=== PATIENT | female | born 1960 | race Caucasian/White ===

== ENCOUNTER 2024-04-27 09:54 | Outpatient (AMB) | payer MEDICAID, SELFPAY ==
--- NOTE | 2024-04-27 10:01 | MHC.OFFVIS ---
Vital Signs 04/27/24 10:05 Height 5 ft 4 in Weight 222 lb 8 oz BMI 38.2 BP 144/90 H Blood Pressure Location Rt brachial Position Sitting Pulse 68 Pulse Source Pulse Oximeter Pulse Oximetry (%) 99 Intake Visit Reasons: ENP-Sleep disorder-CONF Intake Note: Patient presents for for sleep disorder. Patient having issues with sleep sometimes she sleeps good. Java Software Engineer Required: Yes Java Software Engineer Name: [id number] Allergies No Known Allergies Allergy (Verified 04/27/24 10:09) Medication List - Last Reconciled 04/27/24 by PIPE Leiva acetaminophen 500 mg PO Q6H PRN cholecalciferol (vitamin D3) 50 mcg PO DAILY levothyroxine 88 mcg PO DAILY magnesium oxide 400 mg PO BEDTIME 30 days omeprazole 20 mg PO DAILY PRN HPI Comments Details: 63-yr-old female presents for new in-person patient visit for sleep consultation. Pt is accompanied by her dtr. Patient reports she has difficulty staying asleep and falling back asleep. She has always had sleep difficulties. Sleep questionnaire: Have you ever been diagnosed with a sleep disorder? No Have you ever had a sleep study in the past? No Have you ever been treated for a sleep disorder? No Do you take medications for a sleep disorder? No Do you snore? Yes Do you wake up gasping at night? Yes Do you have episodes of apneas? Denies If yes, are they witnessed? N/a Do you have episodes of nocturnal chest pain or dyspnea? May feel like she is being choked Do you have difficulty initiating sleep? No Do you have difficulty maintaining sleep? Yes. Do you wake up tired? Yes Do you have headaches upon awakening? Sometimes. Do you have bruxism? Yes, jaw tightness and soreness. Do you wake up with dry mouth or throat? Yes Do you have GERD? Yes Do you have nocturia? Some nights- up to 4 x's a night. Do you have nocturnal leg cramps? At times Do you have symptoms of restless legs? Yes: when she has leg cramps, has to move. Do you act out your dreams? No Do you have sleep paralysis? No Do you have drop attacks? No Do you ever have hypnogenic hallucinations? No Hypersomnolence questionnaire: Do you have daytime tiredness or fatigue? Yes Do you easily fall asleep when inactive? Yes Have you ever had episodes of sudden weakness? No Have you ever had episodes of sudden weakness associated with strong emotions? No Sleep hygiene questionnaire: What is your usual sleep routine? Usual bedtime is at 10-10:30pm; Usual wake-up time is at 4-6am- but wants to sleep longer. Do you take naps? Yes- sometimes in the afternoon if tired. Is your sleep environment cool, dark, and quiet? Yes Do you exercise? Sometimes Do you take caffeine or other stimulants? Tea in am, coffee sometimes in early afternoon. Do you use electronics in bed? Yes: TV What is your work schedule? Retired- previously worked day shift. FOR[facility]LY [facility] Surgical History (Updated 04/27/24 @ 10:13 by MYRNA Jacobs) H/O toe surgery H/O varicose vein stripping H/O: hysterectomy Social History (Updated 04/27/24 @ 10:13 by MYRNA Jacobs) Alcohol intake: never Patient Tobacco Use Status: Never used Tobacco Physical Exam Vital Signs: Last Vital Signs Pulse 68 04/27/24 10:05 BP 144/90 H 04/27/24 10:05 Pulse Ox 99 04/27/24 10:05 BMI result Body Mass Index 38.2 Const General: no acute distress Orientation/consciousness: patient oriented x3 HEENT Other: Mallampati stage 4 Bilateral TMJ crepitus. Resp Effort & Inspection: normal respiratory effort and able to speak in complete sentences Cardio Rate: regular rate Rhythm: regular rhythm Neuro Other: Bilateral neck tightness. General: patient oriented x3 Psych Mental Status: mental status grossly normal Speech and movement: Clear speech present Attitude: cooperative Assessment & Plan Assessment & Plan (1) Sleep difficulties: Code(s): G47.9 - Sleep disorder, unspecified Category: Medical (2) Snoring: Code(s): R06.83 - Snoring Category: Medical (3) Excessive daytime sleepiness: Code(s): G47.19 - Other hypersomnia Category: Medical (4) TMJ dysfunction: Code(s): M26.609 - Unspecified temporomandibular joint disorder, unspecified side Category: Medical Plan Pt advised to undergo HST to assess for sleep apnea. PT eval & tx for bilateral TMJ pain, crepitus, bruxism. Trial Magnesium 400mg qhs. follow-up upon review of above and in clinic in 6 months or sooner. Pt seen in c/w Dr Damari Rivas. Orders: Orders RT home sleep study Today G47.19 - Other hypersomnia, G47.9 - Sleep disorder, unspecified, M26.609 - Unspecified temporomandibular joint disorder, unspecified side, R06.83 - Snoring PT Evaluation and Treatment Today M26.609 - Unspecified temporomandibular joint disorder, unspecified side Medications: New magnesium oxide may hold for loose stools 400 mg PO BEDTIME 30 days 30 tabs 6RF Coding Level of Care Code New Pt Level 4 (77165) Diagnoses Sleep difficulties G47.9 Snoring R06.83 Excessive daytime sleepiness G47.19 TMJ dysfunction M26.609 [place] Sleepiness Scale Questions Sitting and reading: moderate chance of dozing Watching TV: moderate chance of dozing Sitting inactive in a theater, movie etc.: slight chance of dozing As a passenger in a car for an hour without break: slight chance of dozing Lying down in the afternoon when circumstances permit: moderate chance of dozing Sitting and talking to someone: would never doze Sitting quietly after lunch without alcohol: moderate chance of dozing In a car, while stopped for a few minutes in the traffic: would never doze ESS < 10: normal, ESS > 12: pathologic: 10
[2024-04-27 10:05] VITALS: BP 144/90; PULSE 68; O2SAT 99; BMI 38.2
== END 2024-04-27 11:14 | disposition home or self-care (01) ==
PROVIDERS: PCP Physician Assistant; Visit Provider Nurse Practitioner Family
DX: G47.9 Sleep disorder, unspecified (principal); R06.83 Snoring; G47.19 Other hypersomnia; M26.609 Unspecified temporomandibular joint disorder, unspecified side
CPT/HCPCS: 99204

== ENCOUNTER → 2024-04-27 09:54 | Outpatient (BNVA) | payer MEDICAID, SELFPAY | PROVIDERS: PCP Physician Assistant; Visit Provider Nurse Practitioner Family | DX: G47.9 Sleep disorder, unspecified (principal); R06.83 Snoring; G47.19 Other hypersomnia; M26.609 Unspecified temporomandibular joint disorder, unspecified side | CPT/HCPCS: 99212 ==

== ENCOUNTER → 2024-06-29 10:56 | Outpatient (REF) | payer MEDICAID, SELFPAY | LOC: HO.SL 10:56 | PROVIDERS: PCP Physician Assistant; Visit Provider Nurse Practitioner Family | DX: G47.33 Obstructive sleep apnea (adult) (pediatric) (principal); R06.83 Snoring; G47.19 Other hypersomnia | CPT/HCPCS: 95806 ==

== ENCOUNTER → 2024-06-29 11:14 | Outpatient (BNV) | payer MEDICAID, SELFPAY | PROVIDERS: PCP Physician Assistant; Visit Provider Psychiatry & Neurology Neurology | DX: G47.33 Obstructive sleep apnea (adult) (pediatric) (principal) | CPT/HCPCS: 95806 ==

== ENCOUNTER 2024-11-12 13:02 | Outpatient (AMB) | payer MEDICAID, SELFPAY ==
--- OUTSIDE RECORDS SUMMARY | 2024-11-12 13:05 | XMS_ITS | Data Portability ---
Author Organization [place] - [facility], [facility] Address [address] [place] [address] Assessment Encounter Date Assessment Date Assessment LastModified by Organization Details LastModified Time 04/16/2024 04/16/2024 I am seeing the patient today under the supervision of Dr. Vanegas Who was available but who did not see the patient. HPI: Patient comes in for recheck of left knee pain. Has known osteoarthritis in the medial compartment of the knee(s). Been treated conservatively with cortisone injection to this point with 3 months relief of symptoms. At her last appointment we had implemented a right knee injection. Did not have any difficulty with her last injection we had decided to space out cortisone injections due to some hypertension noted with systemic absorption of cortisone at the appointment prior to last. Did not have any difficulty with her last injection 2 weeks ago. No hypertensive episodes. No new injury or modalities. Past family, medical, social history and review of systems has been reviewed, updated and is located in the patient's chart. Examination:The patient is well appearing and in no apparent distress. Alert and oriented x3. Vital signs per intake sheet. Examination of the left knee reveals no effusion erythema or warmth. Decreased range of motion. Slight varus deformity. Point tender over the medial joint line. Calf soft and nontender. 4+/5 strength of knee flexion extension. Impression: Osteoarthritis, left knee Plan: Nature of the diagnosis discussed with the patient today. Both surgical and nonsurgical options were reviewed. This point recommend a repeat cortisone injection. Patient agreed.After aseptic technique and consent the left knee(s) was injected with 1 cc of Kenalog-40 and 5 cc of 0.25% Marcaine. Patient tolerated the procedure well postinjection precautions were reviewed. Follow-up with us in 3 months for discussion of continued conservative management versus surgical management. [email or web address] Not available 04/16/2024 08:35:22 07/02/2024 07/02/2024 I am seeing the patient today under the supervision of Dr. Haque Who was available but who did not see the patient. HPI: Patient comes in for recheck of right knee pain. Has known osteoarthritis in the medial compartment of the knee(s). Been treated conservatively with cortisone injection to this point with 3 months relief of symptoms. No new injury or modalities. Past family, medical, social history and review of systems has been reviewed, updated and is located in the patient? s chart. Examination:The patient is well appearing and in no apparent distress. Alert and oriented x3. Vital signs per intake sheet. Examination of the right knee reveals no effusion erythema or warmth. Decreased range of motion. Varus deformity. Point tender over the medial joint line. Calf soft and nontender. 4+/5 strength of knee flexion extension. Impression: Osteoarthritis, right knee Plan: Nature of the diagnosis discussed with the patient today. Both surgical and nonsurgical options were reviewed. Conservative measures were discussed at length including but not limited to physical therapy, bracing, anti-inflammatorie s and injection therapies. Please see the procedure note for documentation about the injection performed today. Will follow up as scheduled for further evaluation. The patient understands and agrees with the plan. They know to call if they have any further questions or concerns regarding their symptoms, or to follow up sooner if needed. [email or web address] Not available 07/02/2024 07:49:02 07/16/2024 07/16/2024 I am seeing the patient today under the supervision of Dr. Haque Who was available but who did not see the patient. HPI: Patient comes in for recheck of left knee pain. Has known osteoarthritis in the medial compartment of the knee(s). Been treated conservatively with cortisone injection to this point with continued relief of symptoms. Her right knee did not benefit very much from last cortisone injection. No new injury or modalities. Past family, medical, social history and review of systems has been reviewed, updated and is located in the patient? s chart. Examination:The patient is well appearing and in no apparent distress. Alert and oriented x3. Vital signs per intake sheet. Examination of the bilateral knee reveals no effusion erythema or warmth. Decreased range of motion. Varus deformity. Point tender over the medial joint line. Calf soft and nontender. 4+/5 strength of knee flexion extension. Impression: Osteoarthritis, bilateral knee Plan: Nature of the diagnosis discussed with the patient today. Both surgical and nonsurgical options were reviewed. Conservative measures were discussed at length including but not limited to physical therapy, bracing, anti-inflammatorie s and injection therapies. Patient would like to follow up after another 3 months. Patient has received decreasing benefit from conservative management with cortisone for the right knee, therefore would like to order Visco supplementation. Will obtain insurance approval and see the patient back once this has been obtained. Will follow up as scheduled for further evaluation. The patient understands and agrees with the plan. They know to call if they have any further questions or concerns regarding their symptoms, or to follow up sooner if needed. [email or web address] Not available 07/16/2024 12:28:25 10/08/2024 10/08/2024 I am seeing the patient today under the supervision of who was available but who did not see the patient. Please see procedure documentation for further information about the injection performed today. [email or web address] Not available 10/06/2024 08:09:03 11/05/2024 11/05/2024 I am seeing the patient today under the supervision of Dr. Cantrell who was available but who did not see the patient. HPI: Patient is a 64 year old female presenting today for evaluation of bilateral knee pain. Initially was presenting for her left knee viscosupplementati on. However the left knee is not bothering her very much. The right knee has continued to be very painful. She has not received much benefit at all from the cortisone or gel provided approximately 1 month ago. She is having difficulty sleeping, ambulating for any prolonged period of time and with her activities of daily living. Past family, medical, social history and review of systems has been reviewed, updated and is located in the patient? s chart. Examination: The patient is well appearing and in no apparent distress. Alert and oriented x3. Gait is Antalgic favoring the right side. bilateral knee reveals no evidence of any edema, erythema, or warmth. Varus Deformity. Range of motion of the knee slightly limited with mild discomfort at the end ranges. Mild effusion. Does have some tenderness to palpation about the medial hemijoint line. Patellofemoral crepitus is noted. No ligamentous laxity. Negative Orin? s. Calf is supple and nontender. Neurovascularly intact distally. X-rays ordered, obtained and reviewed at [facility]. 4 views of the bilateral knee today showed narrowing of the medial compartment of the knee. With slight osteophyte formation. Narrowing is noted of patellofemoral joint as well. No evidence of any other bony lesions or pathology. Impression: Osteoarthritis, bilateral knee Plan:I explained the nature of the diagnosis with the patient and its treatment options both conservative and surgical. The patient was thoroughly counseled today regarding their knee condition, its natural history and the options, both operative and non-operative. The nature of knee replacement surgery, the potential risks, benefits, and complications, the magnitude of the surgery, the intensity of postoperative recovery as well as its elective nature were explained at length today. Issues regarding life long infection and activity precautions were reviewed. The longevity of the implants was discussed. Patient would like to meet with Dr. Stiles. Follow up arranged. The patient understands and agrees with the plan. They know to call if they have any further questions or concerns regarding their symptoms, or to follow up sooner if needed. [email or web address] Not available 11/05/2024 10:00:12 Plan of Treatment Reminders Order Date Submit Date Provider Last Modified By Organization Details Last Modified Time Details Appointments NEW PATIENT 15 2024 11:30A M Rudy Mayes MD Not available Not available Not available RECHECK 15 2024 11:00A M Navjot Prince PA-C Not available Not available Not available RECHECK 15 2024 01:30P Nia Prince PA-C Not available Not available Not available Lab None recorded. Referral None recorded. Procedures None recorded. Surgeries None recorded. Imaging XR, knee, 4 or more view - recheck right knee pain room 113 2023 024 [email or web address] [facility], [address], [place], [address], 11/06/2024 07:52:05 Medication Orders diclofena c 1 % topical gel 2023 024 [facility] #[id number], [address] [place], [address], 11/05/2024 10:20:46 Patient TargetsNo targets recorded. Patient Instructions Encounter Date Encounter Id Patient Instructions Last Modified By Organization Details Last Modified Time 10/08/2024 You have been provided with a viscosupplementation injection in order to reduce the pain that you are experiencing from your arthritis. The injection consists of a lubricating injection called hyaluronic acid. Please note that not everyone will have a lasting response following the injection. PATIENT INSTRUCTIONS I recommend icing the affected area for 20 minutes 3-4 times per day. It is recommended that you refrain from any high level activities using the joint or limb that was injected for approximately 24-48 hours. Normal day-to-day activities are generally not a problem. POSSIBLE SIDE EFFECTS Individuals with dark complexions may experience some skin discoloration locally at the site of the injection. There is the possibility of an increase in discomfort within 48 hours following the injection. This is called a ? flare? . To help minimize the chances of this, please see the post-injection instructions above. There is a less than 1% chance of an infection. If you notice any signs of infection (redness, warmth, drainage, fever greater than 100 degrees) please call our office or contact us through the portal [facility]. [email or web address] Not available 10/06/2024 08:09:07 Reason for Referral None Reported. Results Created Date Observation Date Name Description Value Unit Range Abnormal Flag Note LastModifiedBy Organization Detail LastModifiedTime 11/05/2011/05/2024 XR, knee, 4 or more view [email or web address] ?Encry pted=s hAaTro YD8dLq bEUv6g %2BXZw aYqtaq 0bqfl% 2Fg9IQ a4ajBk vP9nXo QUaueC m3YtLR FvZlgJ JJ8mAn HZtai3 1p2157 AC0Kqb nyGU6u uKiQtr MwF INTERFACE [facility] [address] [address] [facility] [address], [place], [address], 11/05/2024 10:10:57 11/05/20 24 11/05/2024 XR, knee, 4 or more view [email or web address] ?Encry pted=s Elsi YD8dLq bEUv6g %2BXZw aYqtaq 0bqfl% 2Fg9IQ a4ajBk vP9nXo QUaueC m3YtLR FvZlgJ JJ8mAn HZtai3 7e3271 AC0Kqb nyGU6u uKiQtr MwF INTERFACE [facility] [address], [place], [address], 11/05/2024 10:10:59 Result Notes None recorded. Problems Name Problem SNOMED Code Status Onset Date Resolution Date Notes Provider Name and Address Organization Details Recorded Time No complaints 816602028 Active Status : 'A'; Not Available [facility] 4 09:20:28 Pain of right knee joint [id number] 00 Active 2023 NIA partida, [facility] 4 09:50:46 Problem Notes None recorded. Procedures Surgical History Date Name Laterality Status Provider Name and Address Organization Details Recorded Time 4 Sports Knee 4&1 completed Navjot Prince PA-C [address] [facility], [place], [address], [facility] 10/06/2024 08:08:41 4 Gel-One Knee Injection completed Navjot Prince PA-C [address] [facility], [place], [address], [facility] 10/06/2024 08:08:36 4 Sports Knee 4&1 completed Navjot Prince PA-C [address] [facility], [place], [address], [facility] 07/02/2024 07:48:19 4 Sports Knee 4&1 completed Navjot Prince PA-C [address] [facility], [place], [address], [facility] 04/16/2024 07:20:11 Sports Knee 4&1 completed Navjot Prince PA-C [address], [place], [address], [facility] 04/01/2024 14:32:24 Imaging Results Imaging Date Name Status LastModified by Organiz ation Details LastModified Time 11/05/2024 XR, knee, 4 or more view completed INTERFACE [facility] [address], [place], [address], 11/05/2024 10:10:57 11/05/2024 XR, knee, 4 or more view completed INTERFACE [facility] [address], [place], [address], 11/05/2024 10:10:59 Procedure Notes None recorded. Medical Equipment None Reported. Allergies No known drug allergies Medications Name Sig Start Date Stop Date Status Note LastModified by Organization Details LastModified Time acetaminoph en 500 mg tablet TAKE 1 TABLET BY MOUTH EVERY 6 HOURS NEEDED FOR PAIN active Not Available Not Available No t Available amoxicillin 500 mg tablet TAKE ONE TABLET BY MOUTH THREE TIMES A DAY FOR SEVEN DAYS 07/02 completed Not Available Not Available Not Available levothyroxi ne 88 mcg tablet TAKE 1 TABLET BY MOUTH EVERY DAY active Not Available Not Available No t Available magnesium oxide 400 mg (241.3 mg magnesium) tablet TAKE 1 TABLET BY MOUTH AT BEDTIME. MAY HOLD FOR LOOSE STOOLS. active Not Available Not Available No t Available omeprazole 20 mg capsule,del ayed release TAKE 1 CAPSULE BY MOUTH ONCE DAILY NEEDED (DYSPEPSI A) active Not Available Not Available No t Available chlorhexidi ne gluconate 0.12 % mouthwash RINSE AND SPIT WITH 15 ML BY MOUTH THREE TIMES DAILY AFTER MEALS FOR TWO WEEKS 07/02 completed Not Available Not Available Not Available diclofenac 1 % topical gel APPLY 2 GRAMS TO THE AFFECTED AREA(S) BY TOPICAL ROUTE 3-4 TIMES PER DAY 2023 active Not Available Not Available Not Avai lable cholecalcif emil (vitamin D3) 50 mcg (2,000 unit) capsule TAKE 1 CAPSULE BY MOUTH EVERY DAY active Not Available Not Available No t Available oxycodone HCl-oxycodo ne-ASA 1Q 4-[address] WHILE ON THIS MEDICATIO N 04/30 completed Statu s: 'Disc ontin ued'; Not Available Not Available Not Available Vitals Date Recorded Body height Provider Name an d Address Organization Details Last Updated DateTime 04/16/2024 160.02 cm KAYLIA L'HEUREUX [facility] 04/16/2024 08:21:14 Date Recorded Body height Body mass index (BMI) Body weight Provider Name and Address Organization Details Last Updated DateTime 07/02/2024 160.02 cm 36.8 kg/m2 64582.21 g KAYLIA L'HEUREUX [facility] 07/02/2024 10:30:53 Date Recorded Body height Body mass index (BMI) Body weight Provider Name and Address Organization Details Last Updated DateTime 07/16/2024 160.02 cm 36.8 kg/m2 11468.21 g KAYLIA L'HEUREUX [facility] 07/16/2024 09:26:35 Date Recorded Body height Body mass index (BMI) Body weight Provider Name and Address Organization Details Last Updated DateTime 10/08/2024 160.02 cm 36.8 kg/m2 92417.21 g KAYLIA L'HEUREUX [facility] 10/08/2024 10:18:08 Date Recorded Body height Body mass index (BMI) Body weight Provider Name and Address Organization Details Last Updated DateTime 11/05/2024 160.02 cm 36.8 kg/m2 61930.21 g KAYLIA L'HEUREUX [facility] 11/05/2024 09:36:50 Social History Question Answer Notes LastModified by Organizat ion Details LastModified Time Tobacco Smoking Status Never Smoker [facility]IA [facility] 07/02/2024 10:31:41 What Is Your Level Of Alcohol Consumption? None Information not available 07/02/2024 What Is Your Relationship Status? Information not available 07/02/2024 Do You Use Any Illicit Or Recreational Drugs? No Information not available 07/02/2024 Do You Or Have You Ever Used Any Other Forms Of Tobacco Or Nicotine? No Information not available 07/02/2024 Sex: Unknown Functional Status None recorded. Mental Status None recorded. Family History Nothing Reported. Medical History Condition Response Allergies/Hayfever N Coronary Artery Disease N Breathing or lung disorders N Anxiety/Depression N Emphysema N Nerve Disorders N Thyroid Problems Y COPD N Pacemaker N Kidney/Bladder Problems N Anemia N Vascular Disease N Heart Trouble N Heart Attack (NH) N Gastrointestinal Disease N Cholesterol N Diabetes N Autoimmune disease N Bleeding Disorder N Orthotics N Seizures/Epilepsy N Arthritis N Blood Clot N AIDS/HIV N Congestive Heart Failure (CHF) N Acid Reflux (GERD) N Cancer N Stroke N Asthma N Circulation Problems N Peripheral Vascular Disease N Sleep Apnea N Hepatitis N Heart Disease N Rheumatoid Arthritis N Pulmonary Embolism N Arrhythmia N Headaches N Fibromyalgia N Hypertension N Osteoporosis N Gynecological HistoryNo gynecological history recorded. Obstetrics History GPAL:G 0 P 0 0 0 0 Past Encounters Encounter ID Performer Location Encounter Start Date Encounter Closed Date Diagnosis/Indication Diagnosis SNOMED-CT Code Diagnosis ICD10 Code [id number] ANDREINA Gonzalez [address] [place] [address] 04/02/2024 10:46:11 04/26/2024 16:57:03 Bilateral osteoarthritis of knees 2640685938 05372 M17.0 [id number] ANDREINA Gonzalez [address] [place] [address] 04/16/2024 08:10:35 05/06/2024 09:07:32 Osteoarthritis of left knee joint 1076328472 76491 M17.12 [id number] ANDREINA Gonzalez [address] [place] [address] 07/02/2024 10:17:19 07/29/2024 10:22:19 Osteoarthritis of right knee joint 6406594658 24666 M17.11 [id number] ANDREINA Gonzalez [address] [place] [address] 07/16/2024 09:11:03 08/08/2024 12:20:04 Osteoarthritis of left knee joint 5570272221 98253 M17.12 [id number] Navjot Prince PA-C [facility] [address] [place] [address] 10/08/2024 10:12:41 10/08/2024 13:31:46 Osteoarthritis of right knee joint 6649270331 91265 M17.11 [id number] ANDREINA Gonzalez [address] [place] [address] 11/05/2024 09:24:00 11/05/2024 10:20:50 Pain of right knee joint 3479283095 34245 M25.561 Primary go narthrosis, bilateral 000056714 M17.0 Health Concerns Section Related Observation LastModified by Organization Detai ls LastModified Time None Recorded Concern Status LastModified by Organization Details LastModified Time None Recorded Advance Directives Directive None Recorded Payers Encounter Date Sequence Insurance Name Policy Number Policy Ray Covered Member ID Ray Member ID Guarantor Name 04/16/2024 1 [place] Rosanna Doddko [id number] Rosanna Rashida 07/02/2024 1 [place] Ros[place] Rashida [id number] Rosanna Rashida 07/16/2024 1 [place] Rosanna Rashida [id number] Rosanna Rashida 10/08/2024 1 [place] Rosanna Rashida [id number] Rosanna Field 11/05/2024 1 [place] Rosanna Doddko [id number] Rosanna Rashida OBGyn Episode No OBEpisode recorded.
[2024-11-12 13:09] VITALS: BMI 39.3
--- NOTE | 2024-11-12 13:09 | A.OFFVIS_ITS ---
Vital Signs 11/12/24 13:09 Height 5 ft 4 in Weight 229 lb BMI 39.3 Intake Visit Reasons: 6 month F/U Intake Note: Patient presents for 6 month follow up Allergies No Known Allergies Allergy (Verified 11/12/24 13:13) HPI Comments Details: 64 yr-old female presents for sleep evaluation. -Pt is accompanied by her dtr. who interprets history Patient reports she has difficulty staying asleep and falling back asleep. Sleep is not currently great b/c of congestion, and cold symptoms. She uses her CPAP more than 4 hours a night. Goes to bed at 11pm gets up at 1:30am goes to the bathroom and gets up at 7 or 8am. She has pain in her knees bilaterally R>L. Gets quarterly Cortisone shots, has bone on bone pain with grinding. Nov 2024 consultation for knee surgery Her memory, mood and diet are good. She cleans the nose pillow, but would like a full face mask as this one is not good fit for her, it leaks and doesn't adjust well, then she removes it in the middle of the night. CPAP- Report not available. [facility] Surgical History H/O toe surgery H/O varicose vein stripping H/O: hysterectomy Social History Alcohol intake: never Patient Tobacco Use Status: Never used Tobacco Review of Systems Const All systems reviewed & are unremarkable except as noted in HPI and below ENT Reports Normal hearing present Neuro Reports Normal hearing present Physical Exam Vital Signs: BMI result Body Mass Index 39.3 Const General: cooperative, comfortable and no acute distress Nutritional Appearance: average body habitus and obese (BMI 39) Orientation/consciousness: patient oriented x3 Eyes Pupils: Equal, round and reactive pupils present Neck Neck: Yes full ROM and Yes supple Resp Effort & Inspection: normal respiratory effort and able to speak in complete sentences Neuro General: patient oriented x3 and moves all extremities Cranial nerves: Yes CN's II-XII intact bilaterally, Yes Facial sensation intact/muscles of mastication intact, Yes Equal, round and reactive pupils present, Yes Normal accommodation reflex present, Yes Bilaterally intact EOM present, Yes Nystagmus not present, Yes Normal facial strength present, Yes Midline tongue present, Yes Normal hearing present, Yes Ability to bilaterally rotate head present and Yes Ability to bilaterally elevate shoulders present Motor exam (neuro): 5/5 motor strength present throughout and Normal motor muscle tone present throughout Deep tendon reflexes (DTR's): Right triceps reflex intensity grade: 2+, Left tri ceps reflex intensity grade: 2+, Rt Biceps (C5, C6): 2+, Left biceps reflex intensity grade: 2+, Right brachioradialis reflex intensity grade: 2+, Left brachioradialis reflex intensity grade: 2+, Right patellar reflex intensity grade: 2+ and Left patellar reflex intensity grade: 2+ Coordination: [id number] test normal Psych Appearance: grossly normal Speech and movement: Normal speech and movement present Affect: normal affect Attitude: cooperative Insight: Good insight present (Psych) Judgement: Good judgement present (Psych) Results Reviewed Results Reviewed: CPAP Report not available patient is being referred to Titration study and mask fitting. Assessment & Plan Assessment & Plan (1) Knee pain, chronic: Code(s): M25.569 - Pain in unspecified knee; G89.29 - Other chronic pain Category: Medical Qualifiers: Laterality: bilateral Qualified Code(s): M25.561 - Pain in right knee; M25.562 - Pain in left knee; G89.29 - Other chronic pain (2) Sleep difficulties: Code(s): G47.9 - Sleep disorder, unspecified Category: Medical (3) Obesity (BMI 30-39.9): Code(s): E66.9 - Obesity, unspecified Category: Medical Plan Sleep difficulties: -Patient continues to have knee pain and shooting pain up the leg and down the basurto. -Will send her to PT for knee pain. Continue use of CPAP daily and especially if napping during the daytime. Follow up in 4 months as needed, after surgical consultation for knee. Will discuss NCS at next f/u as she continues to have leg pain during night which keeps her up, Radiculopathy? Neuropathy? Sciatica? - Supplementation of Magnesium 200-400 mg daily, B12/ Vitamin D/ B6/ Omegas/ Turmeric / Curcumin for inflammation as needed. Orders: Orders PT Evaluation and Treatment Today G89.29 - Other chronic pain, M25.569 - Pain in unspecified knee Coding Level of Care Code Est Pt Level 3 (77444) Diagnoses Chronic pain of both knees M25.561; M25.562; G89.29 Laterality: bilateral Sleep difficulties G47.9 Obesity (BMI 30-39.9) E66.9 Time Spent (min) 30 Comment Improving
== END 2024-11-12 13:59 | disposition home or self-care (01) ==
PROVIDERS: Absent Provider Physician Assistant Medical; PCP Physician Assistant; Visit Provider Nurse Practitioner Family
DX: M25.561 Pain in right knee (principal); M25.562 Pain in left knee; G89.29 Other chronic pain; G47.9 Sleep disorder, unspecified; E66.9 Obesity, unspecified
CPT/HCPCS: 99213

== ENCOUNTER → 2024-11-12 13:02 | Outpatient (BNVA) | payer MEDICAID, SELFPAY | PROVIDERS: Absent Provider Physician Assistant Medical; PCP Physician Assistant; Visit Provider Nurse Practitioner Family | DX: G47.9 Sleep disorder, unspecified (principal); M25.562 Pain in left knee; M25.561 Pain in right knee; G89.29 Other chronic pain; E66.9 Obesity, unspecified; Z68.39 Body mass index [BMI] 39.0-39.9, adult | CPT/HCPCS: 99212 ==

== ENCOUNTER 2025-04-15 11:29 | Outpatient (AMB) | payer MEDICAID, SELFPAY ==
--- NOTE | 2025-04-15 11:31 | MHC.OFFVIS ---
Vital Signs 04/15/25 11:32 Height 5 ft 4 in Weight 225 lb 2 oz BMI 38.6 Pulse 66 Pulse Source Pulse Oximeter Pulse Oximetry (%) 97 Oxygen Delivery Method Room Air Intake Visit Reasons: 5mon follow up Intake Note: Patient presents follow up sleep. Compliance in chart(70/90 days, >=4hrs-16 days, Median Pressure-5.6, Median Leaks-0.0, AHI-0.4) Sample Shoe Inspector And Reworker Required: Yes Sample Shoe Inspector And Reworker Services: Sample Shoe Inspector And Reworker Offered & Declined Sample Shoe Inspector And Reworker Name: Daughter Information Interpreted: non-clinical & clinical Accompanied by: Daughter Allergies No Known Allergies Allergy (Verified 04/15/25 11:35) HPI Comments Details: 64 yr-old female presents for PAUL evaluation. Pt is accompanied by her daughter Huma who interprets history. HST c/w mild PAUL AHI was 9.2 and oxygen usman to 84% and nocturnal hypoxemia, started cpap [id number]. Patient reports she has difficulty staying asleep and falling back asleep due to congestion and feels as though her r. nostril is blocked and is unable to get air in. She was having difficulty with getting supplies and her mask was too large for her face, in February she finally received nose pillows and now she is using her cpap more consistently. She notices in the afternoons she is napping more. We discussed weight reduction options today, walking though she has knee pain, and bone on bone grinding R> L knee pain. She has been going to [address] [place] [address] at [facility], for corticosone shots, and contemplating knee surgery. We discussed wearing a knee brace, using tiger balm, icy hot, or Gregory-wetzel, and massage therapy, along with losing weight and swimming. When taking walks to limit them to 15min and use hiking sticks in both hands to prevent falls. She denies RLS. Her memory, mood and diet are good, she has cut out sugar. We also discussed drinking more water daily. She cleans the nose pillows, washes them daily, rinses out her hoses, changes the filters in the machine, fills the reservoir with water nightly. Requested labs from [facility], and her pcp Vanda Dhillon. [facility] Surgical History H/O toe surgery H/O varicose vein stripping H/O: hysterectomy Social History Alcohol intake: never Patient Tobacco Use Status: Never used Tobacco Physical Exam Vital Signs: Last Vital Signs Pulse 66 04/15/25 11:32 Pulse Ox 97 04/15/25 11:32 Oxygen Delivery Method Room Air 04/15/25 11:32 BMI result Body Mass Index 38.6 Const General: cooperative, comfortable and no acute distress Orientation/consciousness: patient oriented x3 HEENT Face and sinus: Yes face symmetric Eyes Pupils: Equal, round and reactive pupils present Resp Effort & Inspection: normal respiratory effort and able to speak in complete sentences Neuro General: patient oriented x3 and moves all extremities Cranial nerves: Yes Facial sensation intact/muscles of mastication intact, Yes Equal, round and reactive pupils present, Yes Normal accommodation reflex present, Yes Bilaterally intact EOM present, Yes Normal facial strength present, Yes Midline tongue present, Yes Ability to bilaterally rotate head present and Yes Ability to bilaterally elevate shoulders present Gait exam (Neuro): Antalgic gait present Motor exam (neuro): 5/5 motor strength present throughout and Normal motor muscle tone present throughout Psych Thought process: Normal thought process present Thought content: Normal thought content present Results Reviewed Results Reviewed: PAUL compliance report 01/05/2025- 04/04/2025 >4 horus 16 days and 18% Avg use is total 2hours and 10min Press [id number] therapy at 5.6-7.2cmH20 Leaks 0-4.7/hr AHI is 0.4/hr Assessment & Plan Assessment & Plan (1) PAUL (obstructive sleep apnea): Comment: she continues to have r. nare congestion at night leading to hypoxemia, swithed masks. Code(s): G47.33 - Obstructive sleep apnea (adult) (pediatric) Category: Medical (2) Right nasal polyps: Code(s): J33.9 - Nasal polyp, unspecified Category: Medical (3) Nocturnal hypoxemia: Comment: will send for overnight oximetry Code(s): G47.34 - Idiopathic sleep related nonobstructive alveolar hypoventilation Category: Medical (4) Obesity (BMI 30-39.9): Code(s): E66.9 - Obesity, unspecified Category: Medical (5) Excessive daytime sleepiness: Code(s): G47.19 - Other hypersomnia Category: Medical Plan PAUL continue cpap use daily and for more than 4 hours a night, and when napping during the day. Positional therapy and weight loss is recommended. Hypoxemia Oximetry overnight Mask fitting sent order to [facility], may purchase additional supplies on cpap store online. ENT referral for r. sided nare congestion? polyps? suggested using vicks vapor rub stick at night. Obestiy swimming or biking is easier on the joints, start with diet and lifestyle changes. For chronic knee pain continue to use a knee brace and hiking sticks to support weight or swim consistently. Fatigue will submit labs to r/o deficiencies. Continue using mag 400mg daily, requested labs from [facility]. F/U in 3 months for compliance Orders: Orders Complete Blood Count no Diff Today G47.19 - Other hypersomnia Ferritin Today G47.19 - Other hypersomnia Homocysteine Today G47.19 - Other hypersomnia, G47.9 - Sleep disorder, unspecified, R53.83 - Other fatigue Lipid Panel with Reflex Today G47.19 - Other hypersomnia Comprehensive Met. Panel Today G47.19 - Other hypersomnia Hemoglobin A1c Today G47.19 - Other hypersomnia Methylmalonic Acid Today G47.19 - Other hypersomnia, G47.9 - Sleep disorder, unspecified, R53.83 - Other fatigue Vitamin D 25-OH Total Today G47.19 - Other hypersomnia Vitamin B12 and Folate Today G47.19 - Other hypersomnia TSH reflex Free T4 Today G47.19 - Other hypersomnia Referrals Ear/Nose/Throat Referral J33.9 - Nasal polyp, unspecified Patient Instructions: Sleep Hygiene provided: set a scheduled bedtime and wake time to help regulate the circadian rhythm and balance the release of pituitary hormones. Sleep in a dark room, temperatures below 68 degrees, and no devices n bed. Limit caffeinated products 6 hours prior to bed, and limit fluids 2-4 hours prior to bed. Gentle night yoga, diffusing essential oils, and playing soft music can be relaxing. Coding Level of Care Code Est Pt Level 4 (67162) Complex EM visit Add On G2211 Diagnoses PAUL (obstructive sleep apnea) G47.33 Right nasal polyps J33.9 Nocturnal hypoxemia G47.34 Obesity (BMI 30-39.9) E66.9 Excessive daytime sleepiness G47.19 Time Spent (min) 30
[2025-04-15 11:32] VITALS: PULSE 66; O2SAT 97; BMI 38.6
--- OUTSIDE RECORDS SUMMARY | 2025-04-15 12:05 | XMS_ITS | Clinical Summary ---
Author Organization [employer] [facility] it Address [address] [place] [address] Care Team Providers Care Access Services Librarian Name Role Phone Colten Damon MD Primary Care Provider Surgical History Surgery Date Site/Laterality Comments SECTION PROCEDURE: [facility] DELIVERY ONLY HYSTERECTOMY 10/12/08 PROCEDURE: HISTORICAL HYSTERECTOMY; COMMENT: CONNIE, ovaries retained, for fibroids and menorrhagia OTHER SURGICAL HISTORY 03/24/2018 Bilateral PROCEDURE: NH STAB PHLEBT VARICOSE VEINS 1 XTR 10-20 STAB INCS; COMMENT: 02/2018 left Medical History Medical History Date Comments Hyperlipidemia DX:Hyperlipidemi a Chronic venous insufficiency 09/24/2019 DX: Chronic venous insufficiency Irritable bowel syndrome wit h constipation 05/01/2017 DX:Irritable bowel syndrome with constipation Varicose vein of leg 09/24/2019 DX:Varicose vein of leg; COMMENT: S/p elias ablation Social History Tobacco Use Types Packs/Day Years Used Date Smoking Tobacco: Never Smokeless Tobacco: Never Alcohol Use Standard Drinks/Week Comments No 0 (1 standard drink = 0.6 oz pur e alcohol) Comments Unknown Sex and Gender Information Value Date Recorded Sex Assigned at Not on file Legal Sex Female 11:51 AM EST Gender Identity Not on file Sexual Orientation Not on file Obstetrics History Plan of Treatment Health Maintenance Due Date Last Done Comments Breast Cancer Screening 1960 DTaP,Tdap,and Td Vaccines (1 - Tdap) 1979 Cervical Cancer Screening: P ap Smear 1981 Pneumococcal Vaccine: 50+ Ye ars (1 of 1 - PCV) 2010 Zoster Vaccines (1 of 2) 2010 Cholesterol Screening (Lipid Panel) 10/23/2022 Colorectal Cancer Screening: Colonoscopy 10/23/2022 Depression Screening 10/23/2022 HIV Screening 10/23/2022 Hepatitis C Screening 10/23/2022 Social Influencers of Health Screening 10/23/2022 COVID-19 Vaccine (1 - 2023-2 5 season) 2024 Influenza Vaccine (Season Ended) 2025 RSV Immunization Adult Patie nts (1 - 1-dose 75+ series) 2035 HIB Vaccines Aged Out No longer eligi ble based on patient's age to complete this topic HPV Vaccines Aged Out No longer eligi ble based on patient's age to complete this topic Hepatitis A Vaccines Aged Out No long er eligible based on patient's age to complete this topic Hepatitis B Vaccines Aged Out No long er eligible based on patient's age to complete this topic IPV Vaccines Aged Out No longer eligi ble based on patient's age to complete this topic MMR Vaccines Aged Out No longer eligi ble based on patient's age to complete this topic Meningococcal ACWY Vaccine Aged Out N o longer eligible based on patient's age to complete this topic Meningococcal B Vaccine Aged Out No l onger eligible based on patient's age to complete this topic Pneumococcal Vaccine: Pediat rics (0 to 5 Years) and At-Risk Patients (6 to 64 Years) Aged Out No longer eligible b ased on patient's age to complete this topic RSV Immunization Patients Un jose 20 months Aged Out No longer eligible b ased on patient's age to complete this topic Varicella Vaccines Aged Out No longer eligible based on patient's age to complete this topic Care Teams Access Services Librarian Relationship Specialty Start Date End Date Colten Damon MD [address] [place] [address] PCP - General 07/29/08
== END 2025-04-15 12:26 | disposition home or self-care (01) ==
LOC: HO.HSMS 11:30
PROVIDERS: PCP Physician Assistant; Visit Provider Physician Assistant Medical
DX: G47.33 Obstructive sleep apnea (adult) (pediatric) (principal); J33.9 Nasal polyp, unspecified; G47.34 Idiopathic sleep related nonobstructive alveolar hypoventilation; E66.9 Obesity, unspecified; G47.19 Other hypersomnia
CPT/HCPCS: 99214

== ENCOUNTER → 2025-04-15 11:29 | Outpatient (BNVA) | payer MEDICAID, SELFPAY | PROVIDERS: PCP Physician Assistant; Visit Provider Physician Assistant Medical | DX: G47.33 Obstructive sleep apnea (adult) (pediatric) (principal); G47.34 Idiopathic sleep related nonobstructive alveolar hypoventilation; G47.19 Other hypersomnia; J33.9 Nasal polyp, unspecified; E66.9 Obesity, unspecified; R53.83 Other fatigue; Z68.38 Body mass index [BMI] 38.0-38.9, adult | CPT/HCPCS: 99212 ==

== ENCOUNTER 2025-07-19 10:58 | Outpatient (AMB) | payer MEDICAID, SELFPAY ==
--- NOTE | 2025-07-19 11:00 | A.OFFVIS_ITS ---
Vital Signs 07/19/25 11:07 Height 5 ft 4 in Weight 221 lb 2 oz BMI 38.0 BP 124/86 Blood Pressure Location Lt brachial Position Sitting Pulse 74 Pulse Source Pulse Oximeter Pulse Oximetry (%) 97 Oxygen Delivery Method Room Air Intake Visit Reasons: 3m follow up Intake Note: Patient presents follow up PAUL. Compliance in chart(61/90days, >=4hrs-22%, Average Usage-2hr 22min, Med Pressure-5.7, Med Leaks-0.0, AHI-0.5). Patient worried about using mask for 3m. Patient states mask is loose. Shield Cleaner Required: Yes Shield Cleaner Language: Sudanese Shield Cleaner Services: Shield Cleaner Present Shield Cleaner Name: Lashonda [phone] Information Interpreted: non-clinical & clinical Accompanied by: Daughter Allergies No Known Allergies Allergy (Verified 07/19/25 11:11) HPI Comments Details: 64 yr-old Cyrillic speaking [place]ian female presents for PAUL evaluation. Shield Cleaner on IPAD helps with history taking. Pt is accompanied by her daughter Huma BAIG c/w mild PAUL AHI was 9.2 and oxygen usman to 84% and nocturnal hypoxemia, started cpap [id number]. 03/2025-06/2025 PAUL compliance Report reviewed with patient. total use is 61/90days, >=4hrs is 22%, Average Usage 2hr 22min Med Pressure-5.7, Med Leaks-0.0, AHI-0.5 PAUL: Patient worried about using the same mask for 3-months patient states mask is loose. Will send her for a titration study, as patient feels she is not able to get enough air. She has anxiety and is not able to go in for a night study. She has difficulty staying asleep due to congestion and feels as though her r. nostril is congested. She is having difficulty with getting supplies and her mask was too large for her face in February 2025 she received her nose pillow. ENT referral declines. Obesity and weight management: We discussed weight reduction options today, walking as tolerable and she c/o knee pain, and bone on bone grinding R> L knee pain, declines physical therapy.She has been going to [address] [place] [address] at [facility], for cortisone shots, and is contemplating knee surgery. We discussed alternative options such as wearing a knee brace, using tiger balm, icy hot, or Gregory-wetzel, and massage therapy, along with diet and lifestyle changes such as swimming. When taking walks to limit them to 15min and use hiking sticks in both hands to prevent falls. She denies RLS symptoms. Her memory, mood and diet are good, she has decreased sugar from her diet. We also discussed drinking more water daily. She cleans the nose pillows, washes them daily, rinses out her hoses, changes the filters in the machine, fills the reservoir with water nightly. [facility] Surgical History H/O toe surgery H/O varicose vein stripping H/O: hysterectomy Social History Alcohol intake: never Patient Tobacco Use Status: Never used Tobacco Physical Exam Vital Signs: Last Vital Signs Pulse 74 07/19/25 11:07 BP 124/86 07/19/25 11:07 Pulse Ox 97 07/19/25 11:07 Oxygen Delivery Method Room Air 07/19/25 11:07 BMI result Body Mass Index 38.0 Const Other: language barrier / multiple repetitions required for pt. education. General: cooperative, comfortable and no acute distress Nutritional Appearance: obese Orientation/consciousness: patient oriented x3 HEENT Face and sinus: Yes face symmetric Eyes Pupils: Equal, round and reactive pupils present Resp Effort & Inspection: normal respiratory effort and able to speak in complete sentences Neuro General: patient oriented x3 and moves all extremities Cranial nerves: Yes Equal, round and reactive pupils present, Yes Normal accommodation reflex present, Yes Bilaterally intact EOM present, Yes Normal facial strength present, Yes Midline tongue present, Yes Ability to bilaterally rotate head present and Yes Ability to bilaterally elevate shoulders present Gait exam (Neuro): Antalgic gait present and Other gait observations present (leans to the sides ) Motor exam (neuro): 5/5 motor strength present throughout and Normal motor muscle tone present throughout Psych Mental Status: other (repeats questions.) Speech and movement: Other speech and movement exam findings present (Psych) Thought process: Normal thought process present Thought content: Normal thought content present Results Reviewed Results Reviewed: 03/2025-06/2025 PAUL compliance Report reviewed with patient. total use is 61/90days, >=4hrs is 22%, Average Usage 2hr 22min Med Pressure-5.7, Med Leaks-0.0, AHI-0.5 Assessment & Plan Assessment & Plan (1) PAUL (obstructive sleep apnea): Comment: she continues to have r. nare congestion at night leading to hypoxemia, Code(s): G47.33 - Obstructive sleep apnea (adult) (pediatric) Category: Medical (2) Right nasal polyps: Comment: ENT declined referral today Code(s): J33.9 - Nasal polyp, unspecified Category: Medical (3) Nocturnal hypoxemia: Comment: will send for overnight oximetry Code(s): G47.34 - Idiopathic sleep related nonobstructive alveolar hypoventilation Category: Medical (4) Obesity (BMI 30-39.9): Code(s): E66.9 - Obesity, unspecified Category: Medical (5) Excessive daytime sleepiness: Code(s): G47.19 - Other hypersomnia Category: Medical (6) Nasal sinus congestion: Comment: fluticasone / nasal saline spray Code(s): R09.81 - Nasal congestion Category: Medical Plan PAUL continue cpap use daily and for more than 4 hours a night, and when napping during the day. Positional therapy and weight loss is recommended. Compliance is reviewed with pt. today. Overnight pulse oximetry to assess for nocturnal hypoxemia with anxyolitic or sleep aide if patient is amenable. Mask supplies Rx sent for patient as she only has one mask. ENT referral for r. sided nare congestion? polyps? suggested using vicks vapor rub stick at night. R. sided nasal congestion Fluticasone Nasal Saline spray once in each nostril daily for congestion. BMI is elevated to 38 and she is Obese, weight management referral declined today will manage with diet and lifestyle changes. For bilateral chronic knee pain continue knee brace and corti-costeroid injections, uses a cane for ambulation. Fatigue continue labs or request from [facility]. Continue using mag 400mg daily, requested labs from [facility]. F/U in 3 months for compliance. Orders: Orders Overnight Pulse Oximetry Today G47.34 - Idiopathic sleep related nonobstructive alveolar hypoventilation Medications: New fluticasone prp-sod.chl,bicarb 50 mcg- 0.9 % spray once in each nostril, daily in the AM for congestion. 0.5 sprays intranasal DAILY 1 ea 0RF nasal congestion 3 months MDD 1 spray in each nostril R09.81 - Nasal congestion Patient Instructions: Sleep Hygiene provided: set a scheduled bedtime and wake time to help regulate the circadian rhythm and balance the release of pituitary hormones. Sleep in a dark room, temperatures below 68 degrees, and no devices n bed. Limit caffeinated products 6 hours prior to bed, and limit fluids 2-4 hours prior to bed. Gentle night yoga, diffusing essential oils, and playing soft music can be relaxing. Coding Level of Care Code Est Pt Level 4 (32875) Diagnoses PAUL (obstructive sleep apnea) G47.33 Right nasal polyps J33.9 Nocturnal hypoxemia G47.34 Obesity (BMI 30-39.9) E66.9 Excessive daytime sleepiness G47.19 Nasal sinus congestion R09.81
[2025-07-19 11:07] VITALS: BP 124/86; PULSE 74; O2SAT 97; BMI 38.0
--- OUTSIDE RECORDS SUMMARY | 2025-07-19 12:17 | XMS_ITS | Clinical Summary ---
Author Organization [facility] Address [address] [place] [address] Care Team Providers Care Wood Milling Machine Operator Name Role Phone Unavailable Primary Care Provider Unavailabl e Encounters Date Type Department Care Team Description 06/15/2025 Population Health Risk Score [facility] ([facility]) Department [address] [facility] [address] [place] [address] Provider, Population Health Generic from Last 3 Months Social History Tobacco Use Types Packs/Day Years Used Date Smoking Tobacco: Never Assessed Comments Unknown Sex and Gender Information Value Date Recorded Sex Assigned at Female 09/24/2022 10:24 AM EDT Legal Sex Female 10:24 AM EDT Gender Identity Not on file Sexual Orientation Not on file Plan of Treatment Health Maintenance Due Date Last Done Comments CT Colonography 1960 Colonoscopy 1960 Colorectal Cancer Screening 1960 Depression Screening 1960 FIT DNA/Cologuard 1960 FIT 1960 FOBT 1960 Lipid Panel 1960 Sigmoidoscopy 1960 Disability Screening 1960 Alcohol/Substance Use Screening 1972 Tobacco Screening 1972 Hepatitis C Screening 1978 DTaP/Tdap/Td Vaccines (1 - Tdap) 1979 Hepatitis A Vaccines (1 of 2 - Risk 2-dose series) 1979 Pap Smear 1981 Cervical Cancer Screening 1990 HPV/Cotest 1990 Mammogram 2000 Pneumococcal Vaccine: 50+ Ye ars (1 of 1 - PCV) 2010 Zoster Vaccines (1 of 2) 2010 Hepatitis B Vaccines (1 of 3 - Risk 3-dose series) 2020 RSV Patients and Pa tients Aged 60 years or older (1 - Risk 60-74 years 1-dose series) 2020 COVID-19 Vaccine (2023-2 5 season) 2024 Influenza Vaccine (#1) 2025 HIV Screening Completed 01/05/2019 HIB Vaccines Aged Out No longer eligi [...] patient's age to complete this topic Meningococcal Vaccine Aged Out No kira ralph eligible based on patient's age to complete this topic RSV under 20 months Aged Out No longe r eligible based on patient's age to complete this topic Rotavirus Vaccines Aged Out No longer eligible based on patient's age to complete this topic
--- OUTSIDE RECORDS SUMMARY | 2025-07-19 12:17 | XMS_ITS | Clinical Summary ---
[facility] Address [address] [place] [address] Care Team Providers Care Electronics Department Manager Name Role Phone Colten Damon MD Primary Care Provider [phone] Surgical History Surgery Date Site/Laterality Comments SECTION PROCEDURE: [place] DELIVERY ONLY HYSTERECTOMY 10/12/08 PROCEDURE: HISTORICAL HYSTERECTOMY; COMMENT: CONNIE, ovaries retained, for fibroids and menorrhagia OTHER SURGICAL HISTORY 03/24/2018 Bilateral PROCEDURE: [place] STAB PHLEBT VARICOSE VEINS 1 XTR 10-20 [...] 2010 Zoster Vaccines (1 of 2) 2010 COVID-19 Vaccine (2023-2 5 season) 2024 Depression Screening 11/25/2024 Influenza Vaccine (#1) 2025 RSV Immunization Adult Patie nts (1 [...] age to complete this topic Care Teams Electronics Department Manager Relationship Specialty Start Date End Date Colten Damon MD [address] [place] [phone] PCP - General 07/29/08
--- OUTSIDE RECORDS SUMMARY | 2025-07-19 12:17 | XMS_ITS | Clinical Summary ---
Author Organization [facility] Address [address] [place] [address] Care Team Providers Care Svp Group Director Name Role Phone Vanda Dhillon PA-C Primary Care Provider [phone] Source Comments PLEASE NOTE, if this patient is a minor, it may be UNLAWFUL to discuss sensitive information that is contained in these records (such as FAMILY PLANNING, MENTAL HEALTH or SUBSTANCE ABUSE) with the minor patient's parent or other person without the patient's specific authorization.[facility] Allergies No known active allergies Medications PURELAX 17 gram/dose powderIndications: Functional constipation DISSOLVE 17 GRAMS IN 8 OUNCES OF WATER AND TAKE BY MOUTH 2 TIMES DAILY NEEDED FOR CONSTIPATION 1020 g 11 11/12/20 22 Active acetaminophen (TYLENOL) 500 mg tabletIndications: Chronic nonintractable headache, unspecified headache type Take 1 Tablet by mouth every 6 (six) hours as needed for pain 30 Tablet 10/23/20 23 Active cholecalciferol (VITAMIN D-3) 50 mcg (2,000 unit) capsuleIndications :Routine general medical examination at a health care facility TAKE 1 CAPSULE BY MOUTH EVERY DAY 90 Capsule 3 01/26/20 25 Active omeprazole (PRILOSEC) [address] capsuleIndications :Dyspepsia TAKE 1 CAPSULE BY MOUTH ONCE DAILY NEEDED (DYSPEPSIA) 90 Capsule 2 02/09/20 25 Active levothyroxine 88 mcg tabletIndications: Hypothyroidism (acquired) TAKE 1 TABLET BY MOUTH EVERY DAY 90 Tablet 3 04/23/20 25 Active rosuvastatin (CRESTOR) 10 mg tablet Take 1 Tablet by mouth nightly at bedtime. 90 Tablet 3 05/18/20 25 Active Active Problems Problem Noted Date Diagnosed Date Mild hyperlipidemia 04/10/2024 Lumbar disc disease 04/07/2020 S/P partial hysterectomy 200701/05/2019 Hepatic steatosis on ultrasound 12/201611/11/20 17 Dyspepsia 08/06/2016 Venous insufficiency, VASCUL AR eval 01/27/2016 Ariana Carr 02/14/2016 Complete tear of left rotator cuff 02/14/2016 Overview (02/14/2016): MRI 02/10/2016 4*8 mm focal tear of posterior distal supraspinatus tendon Neuropathy of left upper extremity 01/23/2016 H/O endoscopy 02/2014: normal 06/20/2015 H/O colonoscopy 02/2014: repeat 5 years 06/20/20 15 External hemorrhoid 06/20/2015 Pre-diabetes 03/21/2015 Functional constipation 03/21/2015 Primary osteoarthritis of both knees 01/31/2015 Mild vitamin D deficiency 09/13/2014 Non morbid obesity 09/13/2014 Bilateral bunions 05/17/2014 Pancreatic abnormality 03/01/2014 Overview (04/09/2016): Result type: CT Abdomen W/ Contrast Result date: 18 January 2014 11:03 Result status: Auth (Verified) Result title: CT Abdomen W/ Contrast Performed by: Rudy Lang DO on 18 January 2014 15:45 Verified by: Nicholas Jensen MD on 18 January 2014 15:48 Encounter info: [id number], [facility] [place], 01/18/2014 - 01/18/2014 * Final Report * Reason For Exam pancreatic lesion RESULT: CT Abdomen W/ Contrast CT Abdomen W/ Contrast INDICATION: Followup of pancreatic lesion. COMPARISON: MRI of the abdomen from 02/23/2011. TECHNIQUE: Helical CT scan was performed through the abdomen with nonionic IV contrast. Images are formatted in axial, sagittal and coronal planes.The study was performed with enteric contrast. FINDINGS: Lung Bases: There is linear atelectasis or scarring in the LEFT lung base. There is no pleural or pericardial effusion. Liver: There are two calcifications in the caudate lobe of the liver, likely representing old granulomatous disease. The liver is otherwise normal in size, attenuation, and enhancement, without focal lesion or mass. Gallbladder: Normal. Bile ducts: There is no intrahepatic or extrahepatic ductal dilatation. Spleen: Normal. Pancreas: There is an ill-defined area of hypoattenuation in the head of the pancreas that extends into the neck. This corresponds to the fat signal seen in this same area on the MRI from 02/23/2011. This area does not enhance. There are no discrete pancreatic masses. There is no peripancreatic fluid or inflammatory change. Adrenal Glands: Normal. 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 There is no renal calculus or hydronephrosis on either side. There are no suspicious renal masses. There is normal cortical enhancement. The visualized ureters are normal. Stomach, Small bowel and Large Bowel : Stomach and duodenum are normal. The visualized small bowel and colon is normal in size and distribution without evidence of wall thickening or obstruction. Omentum, peritoneum and mesentery: There is no pneumoperitoneum. No abdominal ascites identified. Lymph nodes: There are no enlarged mesenteric or retroperitoneal lymph nodes. Vascular structures: The aorta is of normal course and caliber without aneurysmal dilatation. The IVC is normal. Abdominal wall: Normal. Bones: No acute osseous abnormality. IMPRESSION: Nonspecific low attenuation in the head and neck the pancreas, without evidence of a discrete mass. Given the inherent differences in imaging modalities, this does not appear to have changed significantly compared with the MRI obtained on 02/23/2011. I have personally reviewed the images and I agree with this report. Signature Line Dictated By: Rudy Lang DO Dictated Date/Time: 01/18/14 3:32 pm Reviewed By: Nicholas Jensen MD Signed By: Nicholas Jensen MD Signed Date/Time: 01/18/14 3:48 pm Transcribed By: MAYRA Transcribed Date/Time: 01/18/14 3:[address] Abdomen W/ Contrast This document has an image Thyroid nodule FNA 12/2013: n egative, thyroid ultrasound 05/2017 no nodules only mild enlargement 03/01/2014 Overview (03/01/2014): Result type: Cytology Reports General Result date: 19 January 2014 9:00 Result status: Auth (Verified) Result title: [id number] Performed by: Jennifer Mccarthy MD on 19 January 2014 9:00 Verified by: Jennifer Mccarthy MD on 19 January 2014 9:00 Encounter info: [id number], [facility] [place], 01/19/2014 - 01/19/2014 Contributor system: [employer] * Final Report * [id number] Patient Name: MUSTAPHA DACOSTA Lab Patient : [id number] (Age: 53) Collection Date: 01/19/2014 Accession Date: 01/19/2014 Sign Out Date: 01/21/2014 Tissue Source: 1: THYROID, RIGHT LOWER, NEEDLE ASPIRATION: Final Diagnosis: THYROID, RIGHT LOWER, NEEDLE ASPIRATION: NEGATIVE FOR MALIGNANT CELLS. 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 Primary Pathologist:Jennifer Mccarthy M.D. electronically signed out by: Jennifer Mccarthy M.D. / [facility] Clinical History: Thyroid nodule Gross Description: Received needle washing in 95% alcohol, received 2 fixed slides, 2 air dried slides, 4 total slides Pass 1: Evaluation of specimen adequacy during aspiration procedure preliminary diagnosis: Adequate. Pass 2: Evaluation of specimen adequacy during aspiration procedure preliminary diagnosis: Many lymphocytes and few H rthle cells present [facility] [place] Phone #: [phone], On-Call Pathologist: [id number] Hypothyroidism (acquired) 12/07/2013 Encounters Date Type Department Care Team Description 05/18/2025 Results Follow-Up [address] [phone] Vanda Dhillon PA-C 05/11/2025 10:20 AM EDT Office Visit [address] [phone] Vanda Dhillon PA-C from Last 3 Months Social History Tobacco Use Types Packs/Day Years Used Date Smoking Tobacco: Never Smokeless Tobacco: Never Tobacco Cessation:Counseling Given: Not Answered Alcohol Use Standard Drinks/Week Comments No 0 (1 standard drink = 0.6 oz pur e alcohol) Social Connections Answer Date Recorded Connectedness 1 05/04/2024 Financial Resource Strain Answer Date R ecorded Financial Resource Strain 1 2023 Stress Answer Date Recorded Stress 1 05/04/2024 Physical Activity Answer Date Recorded Physical Activity 0 07/18/2019 Food Insecurity Answer Date Recorded Food 1 05/04/2024 Transportation Needs Answer Date Record ed Transportation 1 05/04/2024 Housing Stability Answer Date Recorded Housing 1 05/04/2024 Safety and Environment Answer Date Hero rded Safety 1 05/04/2024 Utilities Answer Date Recorded Utilities 1 05/04/2024 Employment Answer Date Recorded Employment 0 07/18/2019 Comments No Sex and Gender Information Value Date Recorded Sex Assigned at Female 11/13/2017 6:02 PM PST Legal Sex Female 11:36 AM PDT Gender Identity Female 11/13/2017 6:02 PM PST Sexual Orientation Straight 11/13/2017 6: 02 PM PST Last Filed Vital Signs Vital Sign Reading Time Taken Comments Blood Pressure 114/68 05/11/2025 10:24 AM EDT Pulse 102 05/11/2025 10:24 AM EDT Temperature 36.5 C (97.7 F) 05/11/2025 10:24 AM EDT Respiratory Rate 16 05/11/2025 10:24 AM EDT Oxygen Saturation 98% 05/11/2025 10:24 AM EDT Inhaled Oxygen Concentration - - Weight 100.2 kg (221 lb) 05/11/2025 10:24 AM EDT Height 160 cm (5' 2.99 ) 05/11/2025 10:24 AM EDT Body Mass Index 39.16 05/11/2025 10:24 AM EDT Plan of Treatment Health Maintenance Due Date Last Done Comments Anxiety Screening 1960 Imm-DTaP/Tdap/Td (1 - Tdap) 1979 CT Colonography 2005 Fecal DNA 2005 Flexible Sigmoidoscopy 2005 Imm-Pneumococcal 50+ (1 of 1 - PCV) 2010 Imm-Zoster, Recombinant (1 of 2) 2010 FIT/gFOBT 03/01/2015 03/01/2014 (Declined) Colonoscopy 02/24/2024 02/23/2014 Colorectal Cancer Screening 02/24/2024 [id number] ( - season) 2024 Imm-Influenza (#1) 2025 12/20/2014 (D eclined), 03/01/2014 (Declined) Annual Wellness (Adult): Indicated (All Coverage) 05/11/2026 05/11/2025, 04/10/2024, 09/07/2021, Additional history exists Breast Cancer Screening (Mammogram) 05/11/2026 12/28/2023, 12/25/2023, 08/11/2019, Additional history exists Postponed from 12/28/2024 (Patient postponement) Diabetes Screening 05/11/2026 05/11/2025, 0 05/11/2025, 04/10/2024, Additional history exists Hypertension Screening (#1) 05/11/2026 12/20/2014 Lipid Screening 05/11/2026 05/11/2025, 03/25, 02/28/2023, Additional history exists TSH Monitoring 05/11/2026 05/11/2025, 03/25, 02/28/2023, Additional history exists Tobacco Screening 05/11/2026 05/11/2025 Hepatitis C Screening Completed 09/13/2014 HIV Screening Completed 01/05/2019 Alcohol and Drug Screen Completed 05/11/20 25, 05/04/2024, 04/10/2024, Additional history exists Depression Annual Screen Completed 025, 12/20/2014 (Declined) Procedures Procedure Name Priority Date/Time Associated Diagnosis Comments REFERRAL SCANNED DOCUMENT 07/07/2025 3:00 AM EDT REFERRAL SCANNED DOCUMENT 06/03/2025 3:00 AM EDT ASSAY OF FREE THYROXINE Routine 05/11/2025 10:47 AM EDT 25 HYDROXY INCLUDES FRACTIONS IF PERFORMED Routine 05/11/2025 10:47 AM EDT Routine general medical examination at a health care facility Mild hyperlipidemia Mild vitamin D deficiency Non morbid obesity Hypothyroidism (acquired) Pre-diabetes Colon cancer screening Malaise and fatigue LYME DISEASE, IGG/IGM AB, WESTERN BLOT Routine 05/11/2025 10:47 AM EDT Routine general medical examination at a health care facility Mild hyperlipidemia Mild vitamin D deficiency Non morbid obesity Hypothyroidism (acquired) Pre-diabetes Colon cancer screening Malaise and fatigue ASSAY OF MAGNESIUM Routine 05/11/2025 10 :47 AM EDT Routine general medical examination at a health care facility Mild hyperlipidemia Mild vitamin D deficiency Non morbid obesity Hypothyroidism (acquired) Pre-diabetes Colon cancer screening Malaise and fatigue VITAMIN B12 & FOLATE Routine 05/11/2025 10:47 AM EDT Routine general medical examination at a health care facility Mild hyperlipidemia Mild vitamin D deficiency Non morbid obesity Hypothyroidism (acquired) Pre-diabetes Colon cancer screening Malaise and fatigue BLOOD COUNT COMPLETE AUTO&AUTO DIFRNTL WBC Routine 05/11/2025 10:47 AM EDT Routine general medical examination at a health care facility Mild hyperlipidemia Mild vitamin D deficiency Non morbid obesity Hypothyroidism (acquired) Pre-diabetes Colon cancer screening Malaise and fatigue COMPREHENSIVE METABOLIC PANEL Routine 05/11/2025 10:47 AM EDT Routine general medical examination at a health care facility Mild hyperlipidemia Mild vitamin D deficiency Non morbid obesity Hypothyroidism (acquired) Pre-diabetes Colon cancer screening Malaise and fatigue LIPID PANEL Routine 05/11/2025 10:47 AM EDT Routine general medical examination at a health care facility Mild hyperlipidemia Mild vitamin D deficiency Non morbid obesity Hypothyroidism (acquired) Pre-diabetes Colon cancer screening Malaise and fatigue TSH W/RFLX FREE T4 Routine 05/11/2025 10 :47 AM EDT Routine general medical examination at a health care facility Mild hyperlipidemia Mild vitamin D deficiency Non morbid obesity Hypothyroidism (acquired) Pre-diabetes Colon cancer screening Malaise and fatigue HEMOGLOBIN GLYCOSYLATED A1C Routine 05/11/2025 10:47 AM EDT Routine general medical examination at a health care facility Mild hyperlipidemia Mild vitamin D deficiency Non morbid obesity Hypothyroidism (acquired) Pre-diabetes Colon cancer screening Malaise and fatigue REFERRAL SCANNED DOCUMENT 04/22/2025 3:00 AM EDT REFERRAL FOR MAMMOGRAM Routine 4 3:00 AM EST Screening mammogram, encounter for ANTIBODY HIV-1&HIV-2 SINGLE RESULT Routine 01/05/2019 2:34 PM EST Non morbid obesity HEPATITIS A,B,C PANEL Routine 09/13/2014 1:46 PM EDT Obesity from Last 3 Months or Most Recently Relevant to Health Maintenance Results * REFERRAL SCANNED DOCUMENT (07/07/2025 3:00 AM EDT) Only the most recent of3 resultswithin the time period is included. 07/07/2025 3:00 AM EDT Vanda Dhillon PA-C SCAN REFERRAL Final Result * (ABNORMAL) TSH W/RFLX FREE T4 Routine (05/11/2025 10:47 AM EDT) TSH W/REFLEX TO FT4 4.79(H) 0.40 - 4.50 mIU/L [facility] Blood Blood / Unknown 05/11/2025 1 0:47 AM EDT 05/11/2025 10:47 AM EDT aVnda Dhillon PA-C LAB - BLOOD DRAW Edited Resu lt - Final [facility] [address] [address], [facility] [address] [address] * LYME DISEASE, IGG/IGM AB, WESTERN BLOT Routine (05/11/2025 10:47 AM EDT) LYME DISEASE AB (IGG) WB NEGATIVE NEGATIVE [facility] 18 KD (IGG) BAND NON-REACTIVE [facility] 23 KD (IGG) BAND NON-REACTIVE [facility] 28 KD (IGG) BAND NON-REACTIVE [facility] 30 KD (IGG) BAND NON-REACTIVE [facility] 39 KD (IGG) BAND NON-REACTIVE [facility] 41 KD (IGG) BAND NON-REACTIVE [facility] 45 KD (IGG) BAND NON-REACTIVE [facility] 58 KD (IGG) BAND NON-REACTIVE [facility] 66 KD (IGG) BAND NON-REACTIVE [facility] 93 KD (IGG) BAND NON-REACTIVE [facility] LYME DISEASE AB (IGM) WB NEGATIVE NEGATIVE [facility] 23 KD (IGM) BAND NON-REACTIVE [facility] 39 KD (IGM) BAND NON-REACTIVE [facility] 41 KD (IGM) BAND NON-REACTIVE [facility] COMMENT [facility] Blood Blood / Unknown 05/11/2025 1 0:47 AM EDT 05/11/2025 10:47 AM EDT Narrative [facility] - 05/13/2025 1:29 PM EDT Lyme immunoblot testing should only be performed on samples from patients who have had a Positive or Equivocal result in a screening assay. As per CDC criteria, a Lyme disease IgG Immunoblot must show reactivity to at least 5 of 10 specific borrelial proteins to be considered positive; similarly, a positive Lyme disease IgM immunoblot requires reactivity to 2 of 3 specific borrelial proteins. Although considered negative, IgG reactivity to fewer specific borrelial proteins or IgM reactivity to only 1 protein may indicate recent B. burgdorferi infection and warrant testing of a later sample. A positive IgM but negative IgG result obtained more than a month after onset of symptoms likely represents a false- positive IgM result rather than acute Lyme disease. In rare instances, Lyme disease immunoblot reactivity may represent antibodies induced by exposure to other spirochetes. us Vanda Dhillon PA-C LAB - BLOOD DRAW Final Resul t Performing Organization Address City/State/[facility] Co de Phone Number [facility] [address] [address], [facility] [address] [address] * VITAMIN B12 & FOLATE Routine (05/11/2025 10:47 AM EDT) Pathologist [facility] VITAMIN B12 449 200 - 1,100 pg/mL [facility] FOLATE, SERUM 23.7 5.5 ng/mL [facility] Comment: Reference Range Low: <3.4 Borderline: 3.4-5.4 Normal: >5.4 Blood Blood / Unknown 05/11/2025 1 0:47 AM EDT 05/11/2025 10:47 AM EDT us Vanda Dhillon PA-C LAB - BLOOD DRAW Edited Resu lt - Final [facility] [address] [address], [employer] [facility] [address] [place] [address] * (ABNORMAL) BLOOD COUNT COMPLETE AUTO&AUTO DIFRNTL WBC Routine (05/11/2025 10:47 AM EDT) WHITE BLOOD CELL COUNT 4.5 3.8 - 10.8 Thousand/ uL [facility] RED BLOOD CELL COUNT 4.32 3.80 - 5.10 Million/u L [facility] HEMOGLOBIN 12.8 11.7 - 15.5 g/dL [facility] HEMATOCRIT 40.1 35.0 - 45.0 % [facility] MCV 92.8 80.0 - 100.0 fL [facility] MCH 29.6 27.0 - 33.0 pg [facility] MCHC 31.9(L) 32.0 - 36.0 g/dL [facility] Comment: For adults, a slight decrease in the calculated MCHC value (in the range of 30 to 32 g/dL) is most likely not clinically significant; however, it should be interpreted with caution in correlation with other red cell parameters and the patient's clinical condition. RDW 13.3 11.0 - 15.0 % [facility] PLATELET COUNT 340 140 - 400 Thousand/ uL [facility] MPV 9.8 7.5 - 12.5 fL [facility] ABSOLUTE NEUTROPHILS 2,700 1,500 - 7,800 cells/uL [facility] ABSOLUTE LYMPHOCYTES 1,319 850 - 3,900 cells/uL [facility] ABSOLUTE MONOCYTES 419 200 - 950 cells/uL [facility] ABSOLUTE EOSINOPHILS 32 15 - 500 cells/uL [facility] ABSOLUTE BASOPHILS 32 0 - 200 cells/uL [facility] NEUTROPHILS PCT 60 % [facility] LYMPHOCYTES 29.3 % [facility] MONOCYTES 9.3 % [facility] EOSINOPHILS 0.7 % [facility] BASOPHILS 0.7 % [facility] Blood Blood / Unknown 05/11/2025 1 0:47 AM EDT 05/11/2025 10:47 AM EDT Vanda Dhillon PA-C LAB - BLOOD DRAW Edited Resu lt - Final Performing Organization Address [facility] Co de Phone Number [facility] [employer] [address] [place] [address], [employer] [address] [address] * ASSAY OF FREE THYROXINE Routine (05/11/2025 10:47 AM EDT) T-4, FREE 1.4 0.8 - 1.8 ng/dL [facility] 05/11/2025 10:4 7 AM EDT 05/11/2025 10:47 AM EDT Vanda Dhillon PA-C LAB - BLOOD DRAW Edited Resu lt - Final Performing Organization Address [facility] de Phone Number [facility] [address] [place] [address], [employer] [address] [address] * ASSAY OF MAGNESIUM Routine (05/11/2025 10:47 AM EDT) Pathologist [facility] MAGNESIUM 2.1 1.5 - 2.5 mg/dL [facility] Blood Blood / Unknown 05/11/2025 1 0:47 AM EDT 05/11/2025 10:47 AM EDT Vanda Dhillon PA-C LAB - BLOOD DRAW Edited Resu lt - Final Performing Organization Address [facility] Co de Phone Number [facility] [address] [address], [employer] [address] [address] * (ABNORMAL) HEMOGLOBIN GLYCOSYLATED A1C Routine (05/11/2025 10:47 AM EDT) HEMOGLOBIN A1C 5.8(H) <5.7 % [employer] [facility] Comment: For someone without known diabetes, a hemoglobin A1c value between 5.7% and 6.4% is consistent with prediabetes and should be confirmed with a follow-up test. For someone with known diabetes, a value <7% indicates that their diabetes is well controlled. A1c targets should be individualized based on duration of diabetes, age, comorbid conditions, and other considerations. This assay result is consistent with an increased risk of diabetes. Currently, no consensus exists regarding use of hemoglobin A1c for diagnosis of diabetes for children. Blood Blood / Unknown 05/11/2025 1 0:47 AM EDT 05/11/2025 10:47 AM EDT Vanda Dhillon PA-C LAB - BLOOD DRAW Edited Resu lt - Final Performing Organization Address [facility] Co de Phone Number [facility] [address] [address], [facility] [address] [address] * 25 HYDROXY INCLUDES FRACTIONS IF PERFORMED Routine (05/11/2025 10:47 AM EDT) [facility] VITAMIN D, 25-OH, TOTAL 33 30 - 100 ng/mL [facility] Comment: Vitamin D Status 25-OH Vitamin D: Deficiency: <20 ng/mL Insufficiency: 20 - 29 ng/mL Optimal: > or = 30 ng/mL For 25-OH Vitamin D testing on patients on D2-supplementation and patients for whom quantitation of D2 and D3 fractions is required, the QuestAssureD(TM) 25-OH VIT D, (D2,D3), LC/MS/MS is recommended: order code 72324 (patients >2yrs). COMMENT [facility] Blood Blood / Unknown 05/11/2025 1 0:47 AM EDT 05/11/2025 10:47 AM EDT Narrative [employer] [facility] - 05/13/2025 1:29 PM EDT See Note 1 Note 1 For additional information, please refer to http://education.Transporeon.eTherapeutics/faq/HKN268 (This link is being provided for informational/ educational purposes only.) Vanda Dhillon PA-C LAB - BLOOD DRAW Edited Resu lt - Final [facility] [address] [address], [facility] [address] [place] [address] * (ABNORMAL) LIPID PANEL Routine (05/11/2025 10:47 AM EDT) CHOLESTEROL, TOTAL 267(H) <200 mg/dL [employer] [facility] HDL CHOLESTEROL 53 > OR = 50 mg/dL [facility] TRIGLYCERIDES 288(H) <150 mg/dL [facility] Comment: If a non-fasting specimen was collected, consider repeat triglyceride testing on a fasting specimen if clinically indicated. Leeann et al. J. of Clin. Lipidol. 2015;9:129-169. LDL-CHOLESTEROL 167(H) 99 mg/dL (calc) [facility] Comment: Reference range: <100 Desirable range <100 mg/dL for primary prevention; <70 mg/dL for patients with CHD or diabetic patients with > or = 2 CHD risk factors. LDL-C is now calculated using the Jesus-Lenore calculation, which is a validated novel method providing better accuracy than the Friedewald equation in the estimation of LDL-C. Jesus SS et al. KEERTHI. 2013;310(19): 3036-8293 (http://education.SoNetJob/faq/HDR679) CHOL/HDLC RATIO 5.0(H) <5.0 (calc) [employer] [facility] NON-HDL CHOLESTEROL 214(H) <130 mg/dL (calc) [employer] [facility] Comment: For patients with diabetes plus 1 major ASCVD risk factor, treating to a non-HDL-C goal of <100 mg/dL (LDL-C of <70 mg/dL) is considered a therapeutic option. Blood Blood / Unknown 05/11/2025 1 0:47 AM EDT 05/11/2025 10:47 AM EDT us Vanda Dhillon PA-C LAB - BLOOD DRAW Final Resul t Performing Organization Address City/[facility]/ZIP Co de Phone Number [facility] [address] [address], [facility] [address] [place] [address] * COMPREHENSIVE METABOLIC PANEL Routine (05/11/2025 10:47 AM EDT) GLUCOSE 93 65 - 99 mg/dL [facility] Comment: Fasting reference interval UREA NITROGEN (BUN) 17 7 - 25 mg/dL [facility] CREATININE (blood) 0.80 0.50 - 1.05 mg/dL [facility] EGFR 82 > OR = 60 mL/min/1. 73m2 [facility] BUN/CREATININE RATIO SEE NOTE: [facility] Comment: Not Reported: BUN and Creatinine are within reference range. SODIUM 140 135 - 146 mmol/L [facility] POTASSIUM 4.1 3.5 - 5.3 mmol/L [facility] CHLORIDE 104 98 - 110 mmol/L [facility] CARBON DIOXIDE 26 20 - 32 mmol/L [facility] CALCIUM 9.7 8.6 - 10.4 mg/dL [facility] PROTEIN, TOTAL 7.2 6.1 - 8.1 g/dL [facility] ALBUMIN 4.3 3.6 - 5.1 g/dL [facility] GLOBULIN 2.9 1.9 - 3.7 g/dL (calc) [facility] [facility] ALBUMIN/GLOBULI N RATIO 1.5 1.0 - 2.5 (calc) [facility] BILIRUBIN, TOTAL 1.2 0.2 - 1.2 mg/dL [facility] ALKALINE PHOSPHATASE 63 37 - 153 U/L [facility] AST 20 10 - 35 U/L [facility] ALT 19 6 - 29 U/L [facility] Blood Blood / Unknown 05/11/2025 1 0:47 AM EDT 05/11/2025 10:47 AM EDT us Vanda Dhillon PA-C LAB - BLOOD DRAW Edited Resu lt - Final [facility] [address] [address], [employer] [address] [place] [address] * REFERRAL FOR MAMMOGRAM SCREENING (12/25/2023 3:00 AM EST) 12/25/2023 3:00 AM EST us Magui Jolly PA-C IMG RFL MAMMO Final Result * HIV-1 & HIV-2 ANTIBODIES (01/05/2019 2:34 PM EST) HIV 1 AND 2 ANTIBODY SCREEN NEGATIVE NEGATIVE [facility] Comment: This assay is a 4th generation assay allowing for earlier detection of HIV infection by detecting the presence of the HIV-1 p24 antigen as well as the traditional antibodies to HIV type 1 (including group O) and type 2. Use of a 4th generation assay is the current CDC recommendation for HIV screening. Blood specimen (specimen) Blood / Unknown 01/05/2019 2:34 PM EST 01/05/2019 2:44 PM EST Narrative [facility] - 01/05/2019 8:38 PM EST [employer], [place] [address] [employer] - Heather Worthington MD [place] ID [id number] ORD# [id number] Vanda Dhlilon PA-C LAB - [place] [address], * (ABNORMAL) HEPATITIS A,B,C PANEL (09/13/2014 1:46 PM EDT) HEPATITIS B SURFACE ANTIBODY NEGATIVE NEGATIVE [facility] HEPATITIS B SURFACE ANTIGEN NEGATIVE NEGATIVE [facility] HEPATITIS C VIRUS ANTIBODY NEGATIVE NEGATIVE [facility] HEPATITIS A ANTIBODY TOTAL POSITIVE(A) NEGATIVE [facility] HEPATITIS B CORE ANTIBODY NEGATIVE NEGATIVE [facility] Blood specimen (specimen) Blood / Unknown 09/13/2014 1:46 PM EDT 09/13/2014 2:02 PM EDT Narrative [facility] - 09/13/2014 8:35 PM EDT [employer] [address] [place] [address] PT ID [id number] ORD# [id number] us Vanda Dhillon PA-C LAB - BLOOD DRAW Edited Resu lt - Final [facility] [address] [place] [address], from Last 3 Months or Most Recently Relevant to Health Maintenance Insurance [facility] [employer] Care Teams Svp Group Director Relationship Specialty Start Date End Date Vanda Dhillon PA-C [facility] [place] [phone] PCP - General Internal Medicine 12/07/13
== END 2025-07-19 12:13 | disposition home or self-care (01) ==
LOC: HO.HSMS 10:58
PROVIDERS: PCP Physician Assistant; Visit Provider Physician Assistant Medical
DX: G47.33 Obstructive sleep apnea (adult) (pediatric) (principal); J33.9 Nasal polyp, unspecified; G47.34 Idiopathic sleep related nonobstructive alveolar hypoventilation; E66.9 Obesity, unspecified; G47.19 Other hypersomnia; R09.81 Nasal congestion
CPT/HCPCS: 99214

== ENCOUNTER → 2025-07-19 10:58 | Outpatient (BNVA) | payer MEDICAID, SELFPAY | PROVIDERS: PCP Physician Assistant; Visit Provider Physician Assistant Medical | DX: G47.33 Obstructive sleep apnea (adult) (pediatric) (principal); J33.9 Nasal polyp, unspecified; G47.34 Idiopathic sleep related nonobstructive alveolar hypoventilation; E66.9 Obesity, unspecified; G47.19 Other hypersomnia; R09.81 Nasal congestion | CPT/HCPCS: 99212 ==

== ENCOUNTER 2025-10-18 11:31 | Outpatient (AMB) | payer MEDICAID, SELFPAY ==
--- NOTE | 2025-10-18 11:42 | MHC.OFFVIS ---
Vital Signs 10/18/25 11:43 Height 5 ft 4 in Weight 221 lb BMI 37.9 BP 110/80 Blood Pressure Location Rt brachial Position Sitting Pulse 80 Pulse Source Pulse Oximeter Pulse Oximetry (%) 98 Oxygen Delivery Method Room Air Intake Visit Reasons: 3mnth (sign language interpreter needed) Senior Project Controls Specialist Required: No Accompanied by: Daughter Allergies No Known Allergies Allergy (Verified 07/19/25 11:11) HPI Comments Details: 65 yr-old Cyrillic speaking Occitan female presents for a follow up of PAUL. Senior Project Controls Specialist on IPAD helps with history taking. Pt is accompanied by her daughter Huma. HST c/w mild PAUL AHI was 9.2 and oxygen usman to 84% and nocturnal hypoxemia, started cpap [id number]. 06/2025 to 09/2025 she continues to be non compliant as she needs a new face mask and supplies. She contacted her cpap supplier and was not able to get another mask and has been using the same mask since Dec 2024. After reaching out to [facility] several times she is very discouraged and would like to change to a new DME company as she is unable to get supplies, preferably to [facility] cpap - coverage. PAUL: She cleans the nose pillows, washes them daily, rinses out her hoses, fills the reservoir with water nightly. Patient worried about using the same mask for 3-months patient states mask is loose. Will send her for a titration study, as patient feels she is not able to get enough air. She has anxiety and declines in lab sleep testing for an overnight study. She has difficulty staying asleep due to congestion and feels as though her r. nostril is congested. She is having difficulty with getting supplies and her mask was too large for her face in February 2025 she received her nose pillow and still dislikes the fit. She declines ENT today. Obesity and weight management: We discussed weight reduction options today, walking as tolerable, she c/o knee pain, and bone on bone grinding R> L knee pain, declines physical therapy. Along with diet and lifestyle changes to lose weight we discussed GLP-1 options, zepbound, and following up with nutritional counseling, she decreased sugar from her diet and increased water intake. Pain Management: She has been going to [address] [place] [address] at [facility], for cortisone shots, and is contemplating knee surgery. We discussed options to alleviate/ decrease pain such as wearing a knee brace, using tiger balm, icy hot, or Gregory-wetzel, and massage therapy. along with diet and lifestyle changes to lose weight. She decreased sugar from her diet and increased water intake. She denies RLS symptoms. Her memory, mood are stable. She would like to try freedom category mask and f/u in 3 months for compliance. send new rx to [facility] Phone is [phone] [facility] Surgical History H/O toe surgery H/O varicose vein stripping H/O: hysterectomy Social History Alcohol intake: never Patient Tobacco Use Status: Never used Tobacco Physical Exam Vital Signs: Last Vital Signs Pulse 80 10/18/25 11:43 BP 110/80 10/18/25 11:43 Pulse Ox 98 10/18/25 11:43 Oxygen Delivery Method Room Air 10/18/25 11:43 BMI result Body Mass Index 37.9 Assessment & Plan Assessment & Plan (1) Excessive daytime sleepiness: Code(s): G47.19 - Other hypersomnia Category: Medical (2) PAUL (obstructive sleep apnea): Comment: she continues to have r. nare congestion at night leading to hypoxemia, Code(s): G47.33 - Obstructive sleep apnea (adult) (pediatric) Category: Medical (3) Right nasal polyps: Comment: ENT declined referral today Code(s): J33.9 - Nasal polyp, unspecified Category: Medical (4) Nocturnal hypoxemia: Comment: will send for overnight oximetry, pt declines Code(s): G47.34 - Idiopathic sleep related nonobstructive alveolar hypoventilation Category: Medical (5) Obesity (BMI 30-39.9): Comment: weight management/ GLP1? Code(s): E66.9 - Obesity, unspecified Category: Medical (6) Nasal sinus congestion: Comment: fluticasone / nasal saline spray Code(s): R09.81 - Nasal congestion Category: Medical Plan PAUL continue cpap use daily and for more than 4 hours a night, and when napping during the day. Positional therapy and weight loss is recommended. Compliance is reviewed with pt. today and per guidelines expectations of insurance is reviewed with pt. She needs a new mask: She would like to try freedom category mask and f/u in 3 months for compliance. send new rx to [facility] Phone is [phone] Overnight pulse oximetry to assess for nocturnal hypoxemia with anxyolitic or sleep aide if patient is amenable. Pt declines. Mask supplies Rx sent for patient as she only has one mask, did not like the nasal pillows tried in February 2025. ENT referral for r. sided nare congestion? polyps? suggested using vicks vapor rub stick at night. R. sided nasal congestion Fluticasone Nasal Saline spray, Azelastine, once in each nostril daily for congestion. Pt declines ENT eval. BMI is elevated to 38 and she is Obese, weight management referral declined today will manage with diet and lifestyle changes. For bilateral chronic knee pain continue knee brace and corti-costeroid injections, uses a cane for ambulation per pcp and pain management. Fatigue continue using mag 400mg daily. Lab requested from [facility]. F/U in 3 months for compliance. Coding Level of Care Code Est Pt Level 4 (50362) Complex visit Add On G2211 Diagnoses Excessive daytime sleepiness G47.19 PAUL (obstructive sleep apnea) G47.33 Right nasal polyps J33.9 Nocturnal hypoxemia G47.34 Obesity (BMI 30-39.9) E66.9 Nasal sinus congestion R09.81
[2025-10-18 11:43] VITALS: BP 110/80; PULSE 80; O2SAT 98; BMI 37.9
--- OUTSIDE RECORDS SUMMARY | 2025-10-18 15:18 | XMS_ITS | Clinical Summary ---
Author Organization [facility] ity Address [address] [place] [address] Care Team Providers Care Blackener Name Role Phone Colten Damon MD Primary Care Provider [phone] Surgical History Surgery Date Site/Laterality Comments SECTION PROCEDURE: SD DELIVERY ONLY HYSTERECTOMY 10/12/08 PROCEDURE: HISTORICAL HYSTERECTOMY; COMMENT: CONNIE, ovaries retained, for fibroids and menorrhagia OTHER SURGICAL HISTORY 03/24/2018 Bilateral PROCEDURE: SD STAB PHLEBT VARICOSE VEINS 1 XTR 10-20 [...] 2010 Zoster Vaccines (1 of 2) 2010 Depression Screening 11/25/2024 COVID-19 Vaccine (1 - 2024-2 6 season) 2025 Influenza Vaccine (#1) 2025 RSV Immunization Adult [...] age to complete this topic Care Teams Blackener Relationship Specialty Start Date End Date Colten Damon MD [address] [place] [phone] PCP - General 07/29/08
--- OUTSIDE RECORDS SUMMARY | 2025-10-18 15:18 | XMS_ITS | Clinical Summary ---
Author Organization [employer] Address [address] [facility] [address] [place] [address] Care Team Providers Care Dye Reel Operator Helper Name Role Phone Unavailable Primary Care Provider Unavailabl e Social History Tobacco Use Types Packs/Day Years [...] FIT DNA/Cologuard 1960 FIT 1960 FOBT 1960 Sigmoidoscopy 1960 Alcohol/Substance Use Screening 1972 Tobacco Screening 1972 DTaP/Tdap/Td Vaccines (1 - Tdap) 1979 Pap Smear 1981 Cervical Cancer Screening 1990 HPV/Cotest 1990 Mammogram 2000 Pneumococcal Vaccine: 50+ Ye ars (1 of 1 - PCV) 2010 Zoster Vaccines (1 of 2) 2010 COVID-19 Vaccine ( - 2024-2 6 season) 2025 Influenza Vaccine (#1) 2025 RSV Patients and Pa tients Aged 60 years or older (1 - 1-dose 75+ series) 2035 HIB [...]
== END 2025-10-18 12:19 | disposition home or self-care (01) ==
LOC: HO.HSMS 11:32
PROVIDERS: PCP Physician Assistant; Visit Provider Physician Assistant Medical
DX: G47.19 Other hypersomnia (principal); G47.33 Obstructive sleep apnea (adult) (pediatric); J33.9 Nasal polyp, unspecified; G47.34 Idiopathic sleep related nonobstructive alveolar hypoventilation; E66.9 Obesity, unspecified; R09.81 Nasal congestion
CPT/HCPCS: 99214

== ENCOUNTER → 2025-10-18 11:31 | Outpatient (BNVA) | payer MEDICAID, SELFPAY | PROVIDERS: PCP Physician Assistant; Visit Provider Physician Assistant Medical | DX: G47.33 Obstructive sleep apnea (adult) (pediatric) (principal); R09.81 Nasal congestion; E66.9 Obesity, unspecified; G47.34 Idiopathic sleep related nonobstructive alveolar hypoventilation; G47.19 Other hypersomnia; J33.9 Nasal polyp, unspecified | CPT/HCPCS: 99212 ==